=== PATIENT | male | born 1950 | race Two or more races ===

== ENCOUNTER 2017-07-10 10:11 | Emergency (ER) | payer OTHER ==
[~2017-07-10] VITALS: Ht 165.1 cm; Wt 84.8 kg
[2017-07-10] MEDS ORDERED: LOSARTAN-HCTZ1 EAC1 (10:33)
[2017-07-10] MEDS ORDERED: VERAPAMIL ER240 MG (10:34)
[2017-07-10] MEDS ORDERED: BACTRIM 400-801 EACH (10:35)
[2017-07-10] MEDS ORDERED: PHENAZOPYRIDIN100 MG (10:37)
== END 2017-07-10 18:51 | disposition designated cancer center or children's hospital (05) ==
LOC: ER 10:11
DX: N34.2 Other urethritis (principal); R53.81 Other malaise

== ENCOUNTER 2020-10-24 07:26 | Day surgery (SDC) | payer OTHER ==
[~2020-10-24 07:26] MED LIST: BACTRIM 400-801 EACH; LOSARTAN-HCTZ1 EAC1; LOSARTAN-HCTZ1 EAC1 PO; NIFEDIPINE ER30 M1 PO; PHENAZOPYRIDIN100 MG; PROTONIX40 MG PO; SIMVASTATIN40 MG PO; VERAPAMIL ER240 MG
== END 2020-10-24 16:35 | disposition home or self-care (01) ==
LOC: CIR.AMB 07:26
PROVIDERS: ATTEND Colon & Rectal Surgery
DX: K64.4 Residual hemorrhoidal skin tags (principal); K64.8 Other hemorrhoids; Z20.822 Contact with and (suspected) exposure to COVID-19

== ENCOUNTER 2024-09-11 10:09 | Emergency (ER) | payer OTHER ==
[~2024-09-11] VITALS: Ht 165.1 cm; Wt 84.4 kg
[2024-09-11] MEDS ORDERED: ACETAMINOPHEN 500 MG GEL..CAP PO ONE ×2 (10:36→10:45)
[2024-09-11] MEDS ORDERED: GUAIFENESIN 200 MG/10 ML BLIST.PACK PO ONE ×2 (10:36→10:45)
[2024-09-11 11:06] LABS: BASO % 0.3 % (0.1-1.2); EOS # 0.05 (0.04-0.54); EOS % 0.4 % (0.7-7.0); HEMATOCRIT 42.8 % (40.1-51.0); HEMOGLOBIN 14.5 g/dL (13.7-17.5); LYMPH # 0.89 (1.18-3.74); LYMPH % 7.8 % (19.3-53.1); MEAN CORPUSCULAR HEMOGLOBIN 28.3 pg (25.6-32.2); MONO # 1.03 (0.24-0.82); MONO % 9.1 % (4.7-12.5); NEUT # 9.31 (1.56-6.13); PLATELET COUNT 216 K/uL (163-369); RED BLOOD COUNT 5.12 M/uL (4.63-6.08); RED CELL DISTRIBUTION WIDTH 12.7 % (11.6-14.4)
[2024-09-11 12:17] LABS: COVID-19 AG NEGATIVE (NEGATIVE)
[2024-09-11 12:25] LABS: INFLUENZA A AG NEGATIVE (NEGATIVE); INFLUENZA B AG NEGATIVE (NEGATIVE)
== END 2024-09-11 13:16 | disposition home or self-care (01) ==
LOC: ER 10:09
PROVIDERS: General Practice
DX: J06.9 Acute upper respiratory infection, unspecified (principal); I10 Essential (primary) hypertension; E78.00 Pure hypercholesterolemia, unspecified; Z20.822 Contact with and (suspected) exposure to COVID-19

== ENCOUNTER → 2025-01-23 | Emergency (ER) | payer OTHER ==
[~2025-01-23] VITALS: Ht 165.1 cm; Wt 77.1 kg
[~2025-01-23] MED LIST changes: +ACETAMINOPHEN 500 MG GEL..CAP PO ONE; +HYDROCODONE/CHLORPHEN P-STIREX 5 ML ML PO ONE; +LEVOFLOXACIN750 MG PO; +MUCINEX1200 MG PO; +PEPCID AC20 MG PO
[2025-01-23 16:01] LABS: BASO % 0.3 % (0.1-1.2); EOS # 0.07 (0.04-0.54); EOS % 0.5 % (0.7-7.0); LYMPH # 1.42 (1.18-3.74); LYMPH % 9.3 % (19.3-53.1); MEAN PLATELET VOLUME 11.30 fl (9.4-12.4); MONO # 1.24 (0.24-0.82); MONO % 8.1 % (4.7-12.5); NEUT # 12.46 (1.56-6.13); NEUT % 81.3 % (34.0-71.1); RED CELL DISTRIBUTION WIDTH 12.5 % (11.6-14.4)
[2025-01-23 16:06] LABS: COVID-19 AG NEGATIVE (NEGATIVE)
[2025-01-23 16:25] LABS: ALT/SGPT 37.0 U/L (12-78); AST/SGOT 21.0 U/L (15-37); BILIRUBIN TOTAL 0.67 mg/dL (0.3-1.2); BUN CREA RATIO 24.0 (7.0-25.0); CREATININE SERUM 0.84 mg/dL (0.70-1.30); GFR 89.32; GLOBULINA 3.5 G/DL (2.4-3.5); GLUCOSE FASTING 104.0 mg/dL (65-100); OSMOLALITY SERUM 288.0 MOSM/KG (275-295)
== END | disposition home or self-care (01) ==
LOC: ER 10:27
PROVIDERS: General Practice
DX: B34.9 Viral infection, unspecified (principal); E03.8 Other specified hypothyroidism; I10 Essential (primary) hypertension; Z85.46 Personal history of malignant neoplasm of prostate; E11.9 Type 2 diabetes mellitus without complications; Z20.822 Contact with and (suspected) exposure to COVID-19